=== PATIENT | female | born 1965 | race African-American/Black ===

== ENCOUNTER 2020-03-21 08:01 | Emergency (ER) | payer MEDICAID ==
[~2020-03-21] VITALS: Ht 149.9 cm; Wt 59.0 kg
--- NOTE | 2020-03-21 08:13 | Emergency Room Report ---
History of Present Illness General Chief Complaint: Abdominal Pain Source: Patient Present Illness HPI Disclaimer: Please note that this report is being documented using [employer] technology. This can lead to erroneous entry secondary to incorrect interpretation by the dictating instrument. HPI: 54-year-old female history of gallstones, COPD, bronchitis, pancreatitis presents for evaluation of multiple complaints. She is complaining of intermittent abdominal pain in the epigastrium without nausea or vomiting. Symptoms present several days there also appears a chronic condition. She has not had gallbladder surgery yet but states she suffers from gallstones as well sometimes pancreatitis. Denies recent alcohol abuse. Denies diarrhea or abdominal cramping in the lower quadrants. She does report she had dysuria and hematuria earlier in the week. Hematuria and dysuria have now resolved. Denies flank pain, fever or chills. Patient also complaining of numbness in her hands. This been ongoing for several weeks. She was seen in [facility] which she said she had brain imaging performed which was read as unremarkable. Seems to come and go. Worse in the mornings after waking. Maintains full range of motion and strength. Currently is not having numbness symptoms. He has not yet followed up with PMD. 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 EOMI. PERRLA. Visual paredes are full. No nystagmus. Facial expressions are symmetrical. No facial droop. Cardiovascular: RRR. S1 and S2 normal. No murmur appreciated Resp: Normal work of breathing. No cough, wheezing or crackles appreciated Abdomen: Abdomen is soft, nondistended. Nontender Skin: Intact. No abrasions, laceration or rash over the exposed skin MSK: Normal tone and bulk. Moving all extremities. No obvious deformity. There is no drift in the upper or lower extremities bilaterally. Patient has full range of motion and strength at the shoulders, elbows, wrists and digits of the upper extremities bilaterally. Neuro: Awake and alert. Mentating appropriately. Facial expression symmet rical. No dysarthria, no ataxia on [id number] or [id number] testing. Sensation to light touch and pinprick intact over the dermatomes of the upper extremities. The patient has intact speech with good repetition, comprehension. Fund of knowledge is full. No aphasia, no neglect. NIH: 0 Medical Decision Making Diagnostic Impression: Primary Impression: Hand paresthesia Additional Impression: UTI (urinary tract infection) ER Course 54-year-old female presents for evaluation of intermittent arm tingling, abdominal pain, hematuria. Differential includes was not limited to gastritis, gastroenteritis, pancreatitis, cholecystitis, viral syndrome, UTI, pyelonephritis, bronchitis flare, pneumonia, TIA, CVA, peripheral nerve disease, carpal tunnel syndrome, electrolyte abnormality among others. She arrives by EMS ambulating under her own strength from the ambulance. No vomiting, fevers or other symptoms reported at this time. Overall her physical exam is reassuring. Patient is neurologically intact I find no focal deficits. NIH score is 0. It sounds like the patient has already been through CT and MRI brain imaging at another hospital last week when presented with the symptoms and reportedly the scans were negative. Complaint seem to be more located over the ring and pinky finger of the left hand more consistent with a peripheral nerve issue rather than a central lesion. She also states she has been having bilateral symptoms located in the hands which again point to a more peripheral rather than a central lesion. This can be followed up on an outpatient basis with her PMD. Regarding her abdominal pain Urinalysis concerning for acute urinary tract infection with moderate bacteria, white cells and leukocyte esterase positive. Chemistry within normal limits. Lipase within normal limits. Blood counts unremarkable. Rocephin given in ED and will discharge home on Keflex. Can follow-up on an outpatient basis. Laboratory Tests Test 03/21/20 08:20 White Blood Count 7.8 K/UL (4.8-10.8) Red Blood Count 4.32 M/UL (4.20-5.40) Hemoglobin 14.8 G/DL (12.0-16.0) Hematocrit 44.5 % (37.0-47.0) Mean Corpuscular Volume 103 FL (80-99) H Mean Corpuscular Hemoglobin 34.2 PG (27.0-31.0) H Mean Corpuscular Hemoglobin Concent 33.2 G/DL (32.0-36.0) Red Cell Distribution Width 12.0 % (11.6-14.8) Platelet Count 281 K/UL (150-450) Mean Platelet Volume 6.6 FL (6.5-10.1) Neutrophils (%) (Auto) 59.9 % (45.0-75.0) Lymphocytes (%) (Auto) 30.3 % (20.0-45.0) Monocytes (%) (Auto) 7.1 % (1.0-10.0) Eosinophils (%) (Auto) 1.9 % (0.0-3.0) Basophils (%) (Auto) 0.8 % (0.0-2.0) Urine Color Pale yellow Urine Appearance Slightly cloudy Urine pH 5 (4.5-8.0) Urine Specific [place] 1.025 (1.005-1.035) Urine Protein Negative (NEGATIVE) Urine Glucose (UA) Negative (NEGATIVE) Urine Ketones Negative (NEGATIVE) Urine Blood 1+ (NEGATIVE) H Urine Nitrite Negative (NEGATIVE) Urine Bilirubin Negative (NEGATIVE) Urine Urobilinogen Normal MG/DL (0.0-1.0) Urine Leukocyte Esterase 1+ (NEGATIVE) H Urine RBC 2-4 /HPF (0 - 2) H Urine WBC 5-10 /HPF (0 - 2) H Urine Squamous Epithelial Cells Many /LPF (NONE/OCC) H Urine Bacteria Moderate /HPF (NONE) H Sodium Level 137 MMOL/L (136-145) Potassium Level 3.9 MMOL/L (3.5-5.1) Chloride Level 104 MMOL/L (98-107) Carbon Dioxide Level 25 MMOL/L (21-32) Anion Gap 8 mmol/L (5-15) Blood Urea Nitrogen 14 mg/dL (7-18) Creatinine 1.0 MG/DL (0.55-1.30) Estimated Glomerular Filtration Rate 57.4 mL/min (>60) Glucose Level 119 MG/DL (74-106) H Calcium Level 9.2 MG/DL (8.5-10.1) Total Bilirubin 1.2 MG/DL (0.2-1.0) H Direct Bilirubin 0.2 MG/DL (0.0-0.3) Aspartate Amino Transferase (AST) 14 U/L (15-37) L Alanine Aminotransferase (ALT) 14 U/L (12-78) Alkaline Phosphatase 89 U/L (46-116) Total Protein 8.0 G/DL (6.4-8.2) Albumin 3.8 G/DL (3.4-5.0) Globulin 4.2 g/dL Albumin/Globulin Ratio 0.9 (1.0-2.7) L Lipase 82 U/L (73-393) Last Vital Signs Date Time Temp Pulse Resp B/P (MAP) Pulse Ox O2 Delivery O2 Flow Rate FiO2 03/21/20 07:56 98.1 77 20 140/90 (107) 98 Room Air Disposition: HOME, SELF-CARE Condition: Stable Scripts Cephalexin* (KEFLEX*) 500 Mg Capsule 500 MG ORAL EVERY 12 HOURS, #14 CAP 0 Refills Prov: Jayden Moreno MD 03/21/20 Jayden Moreno MD Mar 21, 2020 08:13
--- NOTE | 2020-03-21 08:20 | NUR ---
ED Nurse Note: Pt BIBA for L arm numbness for 7 days. Pt also has lower abdominal pain 8/10. Pt has blood in urine. Pt is alert and orientedx4, ambulatory. Pt has been seen by ERMD. IV established. Labs sent.
[2020-03-21 08:25] VITALS: BP 137/99
[2020-03-21 08:36] LABS: BASOPHILS % (AUTO) 0.8 % (0.0-2.0); EOSINOPHILS % (AUTO) 1.9 % (0.0-3.0); HEMATOCRIT 44.5 % (37.0-47.0); HEMOGLOBIN 14.8 G/DL (12.0-16.0); LYMPHOCYTES % (AUTO) 30.3 % (20.0-45.0); MEAN CORPUSCULAR VOLUME 103 FL (80-99); MONOCYTES % (AUTO) 7.1 % (1.0-10.0); NEUTROPHILS % (AUTO) 59.9 % (45.0-75.0); PLATELET COUNT 281 K/UL (150-450); RED BLOOD COUNT 4.32 M/UL (4.20-5.40); WHITE BLOOD COUNT 7.8 K/UL (4.8-10.8)
[2020-03-21 08:38] LABS: APPEARANCE,URINE SLIGHTLY CLOUDY; BILIRUBIN, URINE NEGATIVE (NEGATIVE); GLUCOSE, URINE (UA) NEGATIVE (NEGATIVE); KETONES,URINE NEGATIVE (NEGATIVE); LEUKOCYTE ESTERASE ,URINE 1+ (NEGATIVE); NITRITE,URINE NEGATIVE (NEGATIVE); PH,URINE 5 (4.5-8.0); PROTEIN,URINE NEGATIVE (NEGATIVE); UROBILINOGEN,URINE NORMAL MG/DL (0.0-1.0)
[2020-03-21 08:42] LABS: CALCIUM 9.2 MG/DL (8.5-10.1); POTASSIUM 3.9 MMOL/L (3.5-5.1)
[2020-03-21 08:47] LABS: COLOR,URINE PALE YELLOW
[2020-03-21 08:53] LABS: ALBUMIN 3.8 G/DL (3.4-5.0); ALBUMIN/GLOBULIN RATIO 0.9 (1.0-2.7); BILIRUBIN,TOTAL 1.2 MG/DL (0.2-1.0)
[2020-03-21 08:56] LABS: BILIRUBIN,DIRECT 0.2 MG/DL (0.0-0.3)
[2020-03-21] MEDS ORDERED: cefTRIAXone 1 GM in NS 55 ML IVPB ONE (09:15)
[2020-03-21 09:48] VITALS: BP 132/97
--- NOTE | 2020-03-21 09:48 | NUR ---
ER DISCHARGE NOTE: Patient is cleared to be discharged per ERMD, pt is aox4, on room air, with stable vital signs. pt was given dc and prescription instructions, pt was able to verbalize understanding, pt id band and iv site removed without complications. pt is able to ambulate with steady gait. pt took all belongings. Pt educated regarding prescriptions.
[2020-03-21] MEDS ORDERED: CEPHALEXIN500 MG ORAL ×3 (09:51→10:51)
[2020-03-21] MEDS ORDERED: TESSALON PERLE100 MG ORAL (10:51)
--- NOTE | 2020-03-23 02:59 | Diagnostic Imaging Report ---
EXAM: XR Chest, 1 View CLINICAL HISTORY: ABD PAIN TECHNIQUE: Frontal view of the chest. COMPARISON: No relevant prior studies available. FINDINGS: Lungs: Bibasilar atelectasis/pneumonitis. Pleural space: Unremarkable. No pneumothorax. Heart: Unremarkable. No cardiomegaly. Mediastinum: Unremarkable. Bones/joints: No acute fracture. Other findings: Single view 03/21/20 at 817. Presented for interpretation on 03/22/20 at 7:27 PM. IMPRESSION: Bibasilar atelectasis/pneumonitis.
== END 2020-03-21 09:48 | disposition home or self-care (01) ==
LOC: EDBD 08:01 → EMR 08:30
DX: R20.2 Paresthesia of skin (principal); N39.0 Urinary tract infection, site not specified; I10 Essential (primary) hypertension; J45.909 Unspecified asthma, uncomplicated; Z59.0 Homelessness
CPT/HCPCS: 36415; 71045; 80053; 81003; 82248; 83690; 85025; 87086; 96361; 96365; J0696; J7030; Z7502; 99284